=== PATIENT | female | born 1965 | race Caucasian/White ===

== ENCOUNTER → 2016-07-24 | Outpatient (CLI) | payer OTHER ==
[~2016-07-24] VITALS: Ht 152.4 cm; Wt 65.2 kg
[~2016-07-24] MED LIST: XALATAN2.5 ML BOTH EYES
== END | disposition home or self-care (01) ==
LOC: AMB 09:22
PROC: 0DBE8ZZ Excision of Large Intestine, Via Natural or Artificial Opening Endoscopic (ICD-10-PCS; principal; 2016-07-24)
DX: Z12.11 Encounter for screening for malignant neoplasm of colon (principal); D12.0 Benign neoplasm of cecum; K62.1 Rectal polyp; K64.9 Unspecified hemorrhoids
CPT/HCPCS: 88305; B4087; J2250; J3010